=== PATIENT | male | born 1985 | race Caucasian/White ===

== ENCOUNTER 2016-07-28 22:45 | Emergency (ER) | payer OTHER ==
[~2016-07-28 22:45] MED LIST: ASPI81TA85 PO; DEPA1TAB3 PO; DEPA500T2 PO; FLUO20CA8 PO; IBUP600T26 PO; INSUH10VL SC; INSULADS SC; LANTINJ4 SC; LISI-538 PO; LISI-542 PO; METF500T PO; VIMP200T PO
[2016-07-28] MEDS ORDERED: METOCLOPRAMIDE INJ 10MG/2ML VIAL (J2765) As Ordered ONE (23:28)
[2016-07-28 23:34] LABS: BASO % 0.3 % (0.0-1.0); EOS # 0.1 K/mm3 (0.0-0.50); EOS % 1.2 % (0.0-3.0); LARGE UNSTAINED CELL # 0.1 K/mm3 (0.0-0.4); LARGE UNSTAINED CELL % 1.4 % (0.0-4.0); LYMPH # 1.8 K/mm3 (1.5-4.5); LYMPH % 23.1 % (24.0-44.0); MEAN CORPUSCULAR HEMOGLOBIN 28.8 pg (27.0-33.0); MEAN CORPUSCULAR HGB CONC 35.7 g/dl (32.0-36.5); MEAN CORPUSCULAR VOLUME 80.6 fl (80.0-96.0); MONO # 0.3 K/mm3 (0.0-0.8); MONO % 3.8 % (0.0-5.0); NEUTROPHILS # 5.2 K/mm3 (1.8-7.7); NEUTROPHILS % 70.2 % (36.0-66.0); PLATELET COUNT, AUTOMATED 215 k/mm3 (150-450); RED CELL DISTRIBUTION WIDTH 12.8 % (11.5-14.5); WHITE BLOOD COUNT 7.4 K/mm3 (4.0-10.0)
[2016-07-29 00:02] LABS: ALBUMIN 3.9 GM/DL (3.2-5.2); ALBUMIN/GLOBULIN RATIO 1.03 (1.00-1.93); ALKALINE PHOSPHATASE 64 U/L (45-117); ALT/SGPT 94 U/L (12-78); AMYLASE 55 U/L (25-115); ANION GAP 11 MEQ/L (8-16); AST/SGOT 44 U/L (15-37); BILIRUBIN,DIRECT 0.1 MG/DL (0.0-0.2); BILIRUBIN,TOTAL 0.6 MG/DL (0.2-1.0); BLOOD UREA NITROGEN 8 MG/DL (7-18); CARBON DIOXIDE LEVEL 26 MEQ/L (21-32); CHLORIDE LEVEL 103 MEQ/L (98-107); CREATININE FOR GFR 0.62 MG/DL (0.70-1.30); GLOMERULAR FILTRATION RATE > 60.0 (>60); GLUCOSE, FASTING 150 MG/DL (70-105); POTASSIUM SERUM 3.7 MEQ/L (3.5-5.1); SODIUM LEVEL 140 MEQ/L (136-145); TOTAL PROTEIN 7.7 GM/DL (6.4-8.2)
--- NOTE | 2016-07-29 00:40 | REPUSA ---
CLINICAL HISTORY: Syncope. TECHNIQUE: Multiple axial brain CT scan sections were obtained from base to vertex without contrast a dministration. COMMENTS: Comparison is made to prior exam performed on 01/23/2015. The study shows normal configuration of sella turcica. There are no intra or extra-axial collections. There is no mass effect or midline shift. There is no evidence of hematoma formation. No hydrocephal us is present. No abnormal calcifications are noted. No significant abnormalities are seen either in the posterior fossa or supratentorial compartment. Left maxillary chronic sinusitis. The remaining sinuses and mastoid air cells are patent. IMPRESSION: No evidence of acute intracranial pathology. Thank you for your kind referral of this patient.
--- NOTE | 2016-07-29 00:58 | EDDOCDS ---
Physician Documentation [facility] Name: Agus Hoyos Age: 31 yrs Sex: Male : 1985 Arrival Date: 07/28/2016 Time: 22:45 Bed 14 Private MD: Bhupinder Roca Disposition: 07/29/16 00:45 Discharged to Home/Self Care. Impression: Noninfective gastroenteritis and colitis, unspecified. - Condition is Stable. - Prescriptions for Reglan 10 mg Oral Tablet - take 1 tablet by ORAL route every 6 hours take 30 minutes before meals and at bedtime; 20 tablet. - Medication Reconciliation, Local Pharmacy Hours form. - Follow up: Bhupinder Roca; When: Call to arrange an appointment; Reason: Recheck today's complaints. - Problem is new. - Symptoms have improved. Historical: - Allergies: Bees (Hives); - Home Meds: 1. Depakote ER 500mg 1 in am AM and 2 tabs PM Oral Tb24 1 tab daily 2. Keppra 1,000 mg Oral tab 1 tab every 12 hours 3. Trileptal 300 mg oral tab 3 tabs 2 times per day - PMHx: Hypertension; Seizures; - PSHx: Tonsillectomy; - Social history: Smoking status: Patient uses tobacco products, heavy tobacco smoker. No barriers to communication noted, The patient speaks fluent Colombian, Speaks appropriately for age. - Family history: Not pertinent. - : The pt / caregiver states he / she is not on anticoagulants. Home medication list is obtained from the patient. - Exposure Risk Screening:: None identified. Vital Signs: 07/28 22:51 BP 146 / 92; Pulse 62; Resp 18; Temp 99.1(O); Pulse Ox 95% on R/A; Weight 113.4 kg / devon 250 lbs (R); Height 5 ft. 11 in. (180.34 cm) (R); Pain 8/10; 07/29 00:48 BP 145 / 69; Pulse 79; Resp 18; Temp 99.0(TE); Pulse Ox 99% on R/A; Pain 0/10; devon 07/28 22:51 Body Mass Index 34.87 (113.40 kg, 180.34 cm) devon MDM: 07/28 23:09 IV Saline Lock ordered. cs11 23:09 NS 0.9% 1000 ml IV at bolus once ordered. cs11 23:09 Metoclopramide 10 mg IV at 40 mg/hr once over 15 mins ordered. cs11 23:10 CBC with Diff Ordered. EDMS 23:10 MED Profile Ordered. EDMS 23:10 Liver Profile Ordered. EDMS 23:10 Lipase Ordered. EDMS 23:10 Amylase Ordered. EDMS 23:10 CT Head Without Contrast Ordered. EDMS 23:11 DEPAKOTE Ordered. EDMS 07/29 00:29 CBC with Diff Reviewed. cs11 00:29 MED Profile Reviewed. cs11 00:29 Liver Profile Reviewed. cs11 00:29 Lipase Reviewed. cs11 00:29 Amylase Reviewed. cs11 00:29 DEPAKOTE Reviewed. 11 00:56 Financial registration complete. hs2 Administered Medications: 07/28 23:36 Drug: NS 0.9% 1000 ml [sodium chloride 0.9 % intravenous solution] Route: IV; Rate: jmb bolus; Site: left antecubital; 23:36 Drug: Metoclopramide 10 mg [metoclopramide 5 mg/mL injection solution] Route: IV; Rate: jmb 40 mg/hr; Infused Over: 15 mins; Site: left antecubital; Signatures: Dispatcher [employer] Miguel Willard DO DO cs11 Sean Aragon RN RN jmb Stanton, Hillary, Reg Reg hs2 MTDD
--- NOTE | 2016-07-29 00:58 | EDDOCDS ---
Nurse's Notes [facility] Name: Agus Hoyos Age: 31 yrs Sex: Male : 1985 Arrival Date: 07/28/2016 Time: 22:45 Bed 14 Private MD: Bhupinder Roca Diagnosis: Noninfective gastroenteritis and colitis, unspecified Presentation: 07/28 22:47 Presenting complaint: EMS states: Patient has had headache and vomiting since 3 p.m. jmb Patient has done nothing to help alleviate. Vomited 4 times total. Adult Sepsis Screening: The patient does not have new or worsening altered mentation. Patient's respiratory rate is less than 22. Systolic blood pressure is greater than 100. Patient has a qSOFA score of 0- Negative Sepsis Screen. Suicide/Homicide risk assessment- the patient denies having any suicidal and/or homicidal ideations and does not present with any other emotional, behavioral or mental health complaints. Status: Patient is not a home service advisor or dependent. Transition of care: patient was not received from another setting of care. 22:47 Acuity: JERZY Level 4 [facility] 22:47 Method Of Arrival: Ambulance [facility] 22:53 Presenting complaint: Patient states: Patient reports headache, states that his jmb headache makes him feel sick and that he cannot vomit currently. Patient denies taking anything to alleviate headache. Triage Assessment: 22:49 General: Appears in no apparent distress, Behavior is appropriate for age, cooperative. b Pain: Location: head Pain currently is 8 out of 10 on a pain scale. HIV screening NA for this visit Offered previously. Neurological: Level of Consciousness is awake, alert, obeys commands, Oriented to person, place, time, Speech is normal, Facial symmetry appears normal, Facial symmetry: tongue is midline. Respiratory: Airway is patent Respiratory effort is even, unlabored, Respiratory pattern is regular, symmetrical. GI: Abdomen is non- distended. Derm: Skin is pink, warm & dry. Musculoskeletal: Range of motion intact in all extremities. Historical: - Allergies: Bees (Hives); - Home Meds: 1. Depakote ER 500mg 1 in am AM and 2 tabs PM Oral Tb24 1 tab daily 2. Keppra 1,000 mg Oral tab 1 tab every 12 hours 3. Trileptal 300 mg oral tab 3 tabs 2 times per day - PMHx: Hypertension; Seizures; - PSHx: Tonsillectomy; - Social history: Smoking status: Patient uses tobacco products, heavy tobacco smoker. No barriers to communication noted, The patient speaks fluent Bulgarian, Speaks appropriately for age. - Family history: Not pertinent. - : The pt / caregiver states he / she is not on anticoagulants. Home medication list is obtained from the patient. - Exposure Risk Screening:: None identified. Screenin:52 Screening information is obtained from the patient. Fall risk: No risks identified. jmb Assistance ADL's: requires no assistance with activities of daily living. Abuse/DV Screen: The patient / caregiver reports he/she is: not in a situation that causes fear, pain or injury. Nutritional screening: No deficits noted. home support is adequate. 07/29 00:51 Advance Directives: Currently, there is no health care proxy. There is no active DNR jmb order. There is no living will. There is no Power of Analytics Intern. Assessment: 07/28 22:52 General: Appears in no apparent distress, Behavior is appropriate for age, cooperative. jmb Pain: Location: head Pain currently is 8 out of 10 on a pain scale. Neurological: Level of Consciousness is awake, alert, obeys commands, Oriented to person, place, time, Shuttleless Loom Weaver are equal bilaterally Moves all extremities. Speech is normal, Facial symmetry appears normal, Facial symmetry: tongue is midline, Pupils are PERRLA. Cardiovascular: Capillary refill < 3 seconds Heart tones S1 S2 present Pulses are all present. Rhythm is regular. Respiratory: Airway is patent Respiratory effort is even, unlabored, Respiratory pattern is regular, symmetrical, Breath sounds are clear bilaterally. Respiratory: GI: Abdomen is non- distended Bowel sounds present X 4 quads. Abd is soft and non tender X 4 quads. Derm: Skin is pink, warm & dry. Musculoskeletal: Range of motion intact in all extremities. 23:35 General: Appears in no apparent distress, comfortable, Behavior is appropriate for age, jmb cooperative, Patient laying on stretcher, no voiced complaints at this time. . Neurological: Level of Consciousness is awake, alert, obeys commands, Oriented to person, place, time. Respiratory: Airway is patent Respiratory effort is even, unlabored, Respiratory pattern is regular, symmetrical. 07/29 00:27 General: Appears in no apparent distress, comfortable, Behavior is appropriate for age, jmb cooperative. Neurological: Level of Consciousness is awake, alert, obeys commands, Oriented to person, place, time. Respiratory: Airway is patent Respiratory effort is even, unlabored, Respiratory pattern is regular, symmetrical. 00:51 General: Patient instructed on discharge instructions. Patient asked if there were any b questions regarding discharge, patient stated no. IV discontinued per hospital policy. Patient signed discharge instructions. Patient discharged in stable condition. . Vital Signs: 07/28 22:51 BP 146 / 92; Pulse 62; Resp 18; Temp 99.1(O); Pulse Ox 95% on R/A; Weight 113.4 kg (R); devon Height 5 ft. 11 in. (180.34 cm) (R); Pain 8/10; 07/29 00:48 BP 145 / 69; Pulse 79; Resp 18; Temp 99.0(TE); Pulse Ox 99% on R/A; Pain 0/10; devon 07/28 22:51 Body Mass Index 34.87 (113.40 kg, 180.34 cm) devon Vitals: 07/28 22:49 Log In Time N/A - ambulance arrival. [facility] ED Course: 22:46 Patient visited by Jeana Mccall PCA. tmm1 22:46 Patient moved to Waiting tmm1 22:47 Bhupinder Roca is Private Physician. tmm1 22:47 Patient moved to 14 tmm1 22:48 Miguel Ocasio DO is Attending Physician. cs11 22:48 Patient visited by Miguel Ocasio DO. cs11 22:48 Triage Initiated [facility] 22:50 Patient visited by Sean Aragon RN. b 22:52 The patient / caregiver is instructed regarding the plan of care and ED course. jmb 22:54 Patient visited by Sean Aragon RN. samb 23:27 Amylase Sent. samb 23:27 Lipase Sent. jmb 23:27 Liver Profile Sent. jmb 23:27 MED Profile Sent. jmb 23:28 CBC with Diff Sent. samb 23:28 DEPAKOTE Sent. jmb 23:36 Patient visited by Sean Aragon,TERE. kvng 07/29 00:27 Patient visited by Sean Aragon RN. samb 00:45 Bhupinder Roca is Referral Physician. cs11 00:49 Patient visited by Sharon Sr PCA. devon 00:51 Discontinued lock intact, bleeding controlled, pressure dressing applied, No jmb redness/swelling at site. No procedures done that require assistance. Administered Medications: 07/28 23:36 Drug: NS 0.9% 1000 ml [sodium chloride 0.9 % intravenous solution] Route: IV; Rate: jmb bolus; Site: left antecubital; 23:36 Drug: Metoclopramide 10 mg [metoclopramide 5 mg/mL injection solution] Route: IV; Rate: jmb 40 mg/hr; Infused Over: 15 mins; Site: left antecubital; Order Results: Lab Order: CBC with Diff; SPEC'M 07/28/16 23:26 Test: WHITE BLOOD COUNT; Value: 7.4; Range: 4.0-10.0; Units: K/mm3; Status: F Test: RED BLOOD COUNT; Value: 5.39; Range: 4.30-6.10; Units: M/mm3; Status: F Test: HEMOGLOBIN; Value: 15.5; Range: 14.0-18.0; Units: g/dl; Status: F Test: HEMATOCRIT; Value: 43.4; Range: 42.0-52.0; Units: %; Status: F Test: MEAN CORPUSCULAR VOLUME; Value: 80.6; Range: 80.0-96.0; Units: fl; Status: F Test: MEAN CORPUSCULAR HEMOGLOBIN; Value: 28.8; Range: 27.0-33.0; Units: pg; Status: F Test: MEAN CORPUSCULAR HGB CONC; Value: 35.7; Range: 32.0-36.5; Units: g/dl; Status: F Test: RED CELL DISTRIBUTION WIDTH; Value: 12.8; Range: 11.5-14.5; Units: %; Status: F Test: PLATELET COUNT, AUTOMATED; Value: 215; Range: 150-450; Units: k/mm3; Status: F Test: NEUTROPHILS %; Value: 70.2; Range: 36.0-66.0; Abnormal: Above high normal; Units: %; Status: F Test: LYMPH %; Value: 23.1; Range: 24.0-44.0; Abnormal: Below low normal; Units: %; Status: F Test: MONO %; Value: 3.8; Range: 0.0-5.0; Units: %; Status: F Test: EOS %; Value: 1.2; Range: 0.0-3.0; Units: %; Status: F Test: BASO %; Value: 0.3; Range: 0.0-1.0; Units: %; Status: F Test: LARGE UNSTAINED CELL %; Value: 1.4; Range: 0.0-4.0; Units: %; Status: F Test: NEUTROPHILS #; Value: 5.2; Range: 1.8-7.7; Units: K/mm3; Status: F Test: LYMPH #; Value: 1.8; Range: 1.5-4.5; Units: K/mm3; Status: F Test: MONO #; Value: 0.3; Range: 0.0-0.8; Units: K/mm3; Status: F Test: EOS #; Value: 0.1; Range: 0.0-0.50; Units: K/mm3; Status: F Test: BASO #; Value: 0.0; Range: 0.0-0.2; Units: K/mm3; Status: F Test: LARGE UNSTAINED CELL #; Value: 0.1; Range: 0.0-0.4; Units: K/mm3; Status: F Lab Order: MED Profile; SPEC'M 07/28/16 23:26 Test: GLUCOSE, FASTING; Value: 150; Range: 70-105; Abnormal: Above high normal; Units: MG/DL; Status: F Test: BLOOD UREA NITROGEN; Value: 8; Range: 7-18; Units: MG/DL; Status: F Test: CREATININE FOR GFR; Value: 0.62; Range: 0.70-1.30; Abnormal: Below low normal; Units: MG/DL; Status: F Test: GLOMERULAR FILTRATION RATE; Value: > 60.0; Range: >60; Status: F Test: SODIUM LEVEL; Value: 140; Range: 136-145; Units: MEQ/L; Status: F Test: POTASSIUM SERUM; Value: 3.7; Range: 3.5-5.1; Units: MEQ/L; Status: F Test: CHLORIDE LEVEL; Value: 103; Range: 98-107; Units: MEQ/L; Status: F Test: CARBON DIOXIDE LEVEL; Value: 26; Range: 21-32; Units: MEQ/L; Status: F Test: ANION GAP; Value: 11; Range: 8-16; Units: MEQ/L; Status: F Test: CALCIUM LEVEL; Value: 9.0; Range: 8.5-10.1; Units: MG/DL; Status: F Test Note: ; Units are mL/min/1.73 m2 Chronic Kidney Disease Staging per NKF: Stage I & II GFR >=60 Normal to Mildly Decreased Stage III GFR 30-59 Moderately Decreased Stage IV GFR 15-29 Severely Decreased Stage V GFR <15 Very Little GFR Left ESRD GFR <15 on MEDICAL CLAIMS MANAGER Lab Order: Liver Profile; [facility] 07/28/16 23:26 Test: AST/SGOT; Value: 44; Range: 15-37; Abnormal: Above high normal; Units: U/L; Status: F Test: ALT/SGPT; Value: 94; Range: 12-78; Abnormal: Above high normal; Units: U/L; Status: F Test: ALKALINE PHOSPHATASE; Value: 64; Range: 45-117; Units: U/L; Status: F Test: BILIRUBIN,TOTAL; Value: 0.6; Range: 0.2-1.0; Units: MG/DL; Status: F Test: BILIRUBIN,DIRECT; Value: 0.1; Range: 0.0-0.2; Units: MG/DL; Status: F Test: TOTAL PROTEIN; Value: 7.7; Range: 6.4-8.2; Units: GM/DL; Status: F Test: ALBUMIN; Value: 3.9; Range: 3.2-5.2; Units: GM/DL; Status: F Test: ALBUMIN/GLOBULIN RATIO; Value: 1.03; Range: 1.00-1.93; Status: F Lab Order: Lipase; [facility] 07/28/16 23:26 Test: LIPASE; Value: 129; Range: 73-393; Units: U/L; Status: F Lab Order: Amylase; [facility] 07/28/16 23:26 Test: AMYLASE; Value: 55; Range: 25-115; Units: U/L; Status: F Lab Order: DEPAKOTE; SPEC'M 07/28/16 23:26 Test: VALPROIC ACID (DEPAKOTE); Value: 85.3; Range: 50.0-100.0; Units: UG/ML; Status: F Outcome: 07/29 00:45 Discharge ordered by Provider. cs11 00:57 Patient left the ED. kvng Signatures: Sharon Sr, DIVISION ROADMASTER DIVISION ROADMASTER devon Miguel Ocasio, DO cs11 Jeana Mccall, DIVISION ROADMASTER DIVISION ROADMASTER tmm1 Sean Aragon,RN RN kvng MTDD
--- NOTE | 2016-07-31 01:58 | EDDOCDS ---
Physician Documentation [facility] Name: Agus Hoyos Age: 31 yrs Sex: Male : 1985 Arrival Date: 07/28/2016 Time: 22:45 Bed 14 Private MD: Bhupinder Roca Disposition: 07/29/16 00:45 Discharged to Home/Self Care. Impression: Noninfective gastroenteritis and colitis, unspecified. - Condition is Stable. - Prescriptions for Reglan 10 mg Oral Tablet - take 1 tablet by ORAL route every 6 hours take 30 minutes before meals and at bedtime; 20 tablet. - Medication Reconciliation, Local Pharmacy Hours form. - Follow up: Bhupinder Roca; When: Call to arrange an appointment; Reason: Recheck today's complaints. - Problem is new. - Symptoms have improved. Historical: - Allergies: Bees (Hives); - Home Meds: 1. Depakote ER 500mg 1 in am AM and 2 tabs PM Oral Tb24 1 tab daily 2. Keppra 1,000 mg Oral tab 1 tab every 12 hours 3. Trileptal 300 mg oral tab 3 tabs 2 times per day - PMHx: Hypertension; Seizures; - PSHx: Tonsillectomy; - Social history: Smoking status: Patient uses tobacco products, heavy tobacco smoker. No barriers to communication noted, The patient speaks fluent Estonian, Speaks appropriately for age. - Family history: Not pertinent. - : The pt / caregiver states he / she is not on anticoagulants. Home medication list is obtained from the patient. - Exposure Risk Screening:: None identified. Vital Signs: 07/28 22:51 BP 146 / 92; Pulse 62; Resp 18; Temp 99.1(O); Pulse Ox 95% on R/A; Weight 113.4 kg / devon 250 lbs (R); Height 5 ft. 11 in. (180.34 cm) (R); Pain 8/10; 07/29 00:48 BP 145 / 69; Pulse 79; Resp 18; Temp 99.0(TE); Pulse Ox 99% on R/A; Pain 0/10; devon 07/28 22:51 Body Mass Index 34.87 (113.40 kg, 180.34 cm) devon MDM: 07/28 23:09 IV Saline Lock ordered. cs11 23:09 NS 0.9% 1000 ml IV at bolus once ordered. cs11 23:09 Metoclopramide 10 mg IV at 40 mg/hr once over 15 mins ordered. cs11 23:10 CBC with Diff Ordered. EDMS 23:10 MED Profile Ordered. EDMS 23:10 Liver Profile Ordered. EDMS 23:10 Lipase Ordered. EDMS 23:10 Amylase Ordered. EDMS 23:10 CT Head Without Contrast Ordered. EDMS 23:11 DEPAKOTE Ordered. EDMS 07/29 00:29 CBC with Diff Reviewed. cs11 00:29 MED Profile Reviewed. cs11 00:29 Liver Profile Reviewed. cs11 00:29 Lipase Reviewed. cs11 00:29 Amylase Reviewed. cs11 00:29 DEPAKOTE Reviewed. cs11 00:56 Financial registration complete. hs2 : [facility] Payment Agreement was scanned into [employer] and attached to record. hs2 : T-Sheet-- Draft Copy was scanned into [employer] and attached to record. gb Administered Medications: 07/28 23:36 Drug: NS 0.9% 1000 ml [sodium chloride 0.9 % intravenous solution] Route: IV; Rate: jmb bolus; Site: left antecubital; 23:36 Drug: Metoclopramide 10 mg [metoclopramide 5 mg/mL injection solution] Route: IV; Rate: jmb 40 mg/hr; Infused Over: 15 mins; Site: left antecubital; Signatures: Dispatcher [employer] EDMS Merary Diaz, Reg Reg gb Miguel Ocasio DO DO cs11 Sean Aragon RN RN Odette Little, Reg Reg hs2 The chart was reviewed and I authenticate all verbal orders and agree with the evaluation and treatment provided.Attachments: 07/29 01:09 [facility] [place] hs2 : T-Sheet-- Draft Copy gb Chart Complete MTDD
--- NOTE | 2016-07-31 01:58 | EDDOCDS ---
Physician Documentation [facility] Name: Agus Hoyos Age: 31 yrs Sex: Male : 1985 Arrival Date: 07/28/2016 Time: 22:45 Bed 14 Private MD: Bhupinder Roca Disposition: 07/29/16 00:45 Discharged to Home/Self Care. Impression: Noninfective gastroenteritis and colitis, unspecified. - Condition is Stable. - Prescriptions for Reglan 10 mg Oral Tablet - take 1 tablet by ORAL route every 6 hours take 30 minutes before meals and at bedtime; 20 tablet. - Medication Reconciliation, Local Pharmacy Hours form. - Follow up: Bhupinder Roca; When: Call to arrange an appointment; Reason: Recheck today's complaints. - Problem is new. - Symptoms have improved. Historical: - Allergies: Bees (Hives); - Home Meds: 1. Depakote ER 500mg 1 in am AM and 2 tabs PM Oral Tb24 1 tab daily 2. Keppra 1,000 mg Oral tab 1 tab every 12 hours 3. Trileptal 300 mg oral tab 3 tabs 2 times per day - PMHx: Hypertension; Seizures; - PSHx: Tonsillectomy; - Social history: Smoking status: Patient uses tobacco products, heavy tobacco smoker. No barriers to communication noted, The patient speaks fluent Luxembourger, Speaks appropriately for age. - Family history: Not pertinent. - : The pt / caregiver states he / she is not on anticoagulants. Home medication list is obtained from the patient. - Exposure Risk Screening:: None identified. Vital Signs: 07/28 22:51 BP 146 / 92; Pulse 62; Resp 18; Temp 99.1(O); Pulse Ox 95% on R/A; Weight 113.4 kg / devon 250 lbs (R); Height 5 ft. 11 in. (180.34 cm) (R); Pain 8/10; 07/29 00:48 BP 145 / 69; Pulse 79; Resp 18; Temp 99.0(TE); Pulse Ox 99% on R/A; Pain 0/10; devon 07/28 22:51 Body Mass Index 34.87 (113.40 kg, 180.34 cm) devon MDM: 07/28 23:09 IV Saline Lock ordered. cs11 23:09 NS 0.9% 1000 ml IV at bolus once ordered. cs11 23:09 Metoclopramide 10 mg IV at 40 mg/hr once over 15 mins ordered. cs11 23:10 CBC with Diff Ordered. EDMS 23:10 MED Profile Ordered. EDMS 23:10 Liver Profile Ordered. EDMS 23:10 Lipase Ordered. EDMS 23:10 Amylase Ordered. EDMS 23:10 CT Head Without Contrast Ordered. EDMS 23:11 DEPAKOTE Ordered. EDMS 07/29 00:29 CBC with Diff Reviewed. cs11 00:29 MED Profile Reviewed. cs11 00:29 Liver Profile Reviewed. cs11 00:29 Lipase Reviewed. cs11 00:29 Amylase Reviewed. cs11 00:29 DEPAKOTE Reviewed. cs11 00:56 Financial registration complete. hs2 : [facility] Payment Agreement was scanned into [employer] and attached to record. hs2 : T-Sheet-- Draft Copy was scanned into [employer] and attached to record. gb Administered Medications: 07/28 23:36 Drug: NS 0.9% 1000 ml [sodium chloride 0.9 % intravenous solution] Route: IV; Rate: jmb bolus; Site: left antecubital; 23:36 Drug: Metoclopramide 10 mg [metoclopramide 5 mg/mL injection solution] Route: IV; Rate: jmb 40 mg/hr; Infused Over: 15 mins; Site: left antecubital; Signatures: Dispatcher [employer] EDMS Merary Diaz, Reg Reg gb Miguel Ocasio DO DO cs11 Sean Aragon RN RN Odette Little, Reg Reg hs2 The chart was reviewed and I authenticate all verbal orders and agree with the evaluation and treatment provided.Attachments: 07/29 01:09 [facility] [place] Payment Agreement hs2 : T-Sheet-- Draft Copy gb Chart Complete MTDD
--- NOTE | 2016-07-31 01:58 | EDDOCDS ---
Nurse's Notes [facility] Name: Agus Hoyos Age: 31 yrs Sex: Male : 1985 Arrival Date: 07/28/2016 Time: 22:45 Bed 14 Private MD: Bhupinder Roca Diagnosis: Noninfective gastroenteritis and colitis, unspecified Presentation: 07/28 22:47 Presenting complaint: EMS states: Patient has had headache and vomiting since 3 p.m. jmb Patient has done nothing to help alleviate. Vomited 4 times total. Adult Sepsis Screening: The patient does not have new or worsening altered mentation. Patient's respiratory rate is less than 22. Systolic blood pressure is greater than 100. Patient has a qSOFA score of 0- Negative Sepsis Screen. Suicide/Homicide risk assessment- the patient denies having any suicidal and/or homicidal ideations and does not present with any other emotional, behavioral or mental health complaints. Status: Patient is not a legal service specialist or dependent. Transition of care: patient was not received from another setting of care. 22:47 Acuity: JERZY Level 4 [facility] 22:47 Method Of Arrival: Ambulance [facility] 22:53 Presenting complaint: Patient states: Patient reports headache, states that his jmb headache makes him feel sick and that he cannot vomit currently. Patient denies taking anything to alleviate headache. Triage Assessment: 22:49 General: Appears in no apparent distress, Behavior is appropriate for age, cooperative. b Pain: Location: head Pain currently is 8 out of 10 on a pain scale. HIV screening NA for this visit Offered previously. Neurological: Level of Consciousness is awake, alert, obeys commands, Oriented to person, place, time, Speech is normal, Facial symmetry appears normal, Facial symmetry: tongue is midline. Respiratory: Airway is patent Respiratory effort is even, unlabored, Respiratory pattern is regular, symmetrical. GI: Abdomen is non- distended. Derm: Skin is pink, warm & dry. Musculoskeletal: Range of motion intact in all extremities. Historical: - Allergies: Bees (Hives); - Home Meds: 1. Depakote ER 500mg 1 in am AM and 2 tabs PM Oral Tb24 1 tab daily 2. Keppra 1,000 mg Oral tab 1 tab every 12 hours 3. Trileptal 300 mg oral tab 3 tabs 2 times per day - PMHx: Hypertension; Seizures; - PSHx: Tonsillectomy; - Social history: Smoking status: Patient uses tobacco products, heavy tobacco smoker. No barriers to communication noted, The patient speaks fluent Latvian, Speaks appropriately for age. - Family history: Not pertinent. - : The pt / caregiver states he / she is not on anticoagulants. Home medication list is obtained from the patient. - Exposure Risk Screening:: None identified. Screenin:52 Screening information is obtained from the patient. Fall risk: No risks identified. jmb Assistance ADL's: requires no assistance with activities of daily living. Abuse/DV Screen: The patient / caregiver reports he/she is: not in a situation that causes fear, pain or injury. Nutritional screening: No deficits noted. home support is adequate. 07/29 00:51 Advance Directives: Currently, there is no health care proxy. There is no active DNR jmb order. There is no living will. There is no Power of Self Pay Representative. Assessment: 07/28 22:52 General: Appears in no apparent distress, Behavior is appropriate for age, cooperative. jmb Pain: Location: head Pain currently is 8 out of 10 on a pain scale. Neurological: Level of Consciousness is awake, alert, obeys commands, Oriented to person, place, time, Physical Therapy Director are equal bilaterally Moves all extremities. Speech is normal, Facial symmetry appears normal, Facial symmetry: tongue is midline, Pupils are PERRLA. Cardiovascular: Capillary refill < 3 seconds Heart tones S1 S2 present Pulses are all present. Rhythm is regular. Respiratory: Airway is patent Respiratory effort is even, unlabored, Respiratory pattern is regular, symmetrical, Breath sounds are clear bilaterally. Respiratory: GI: Abdomen is non- distended Bowel sounds present X 4 quads. Abd is soft and non tender X 4 quads. Derm: Skin is pink, warm & dry. Musculoskeletal: Range of motion intact in all extremities. 23:35 General: Appears in no apparent distress, comfortable, Behavior is appropriate for age, jmb cooperative, Patient laying on stretcher, no voiced complaints at this time. . Neurological: Level of Consciousness is awake, alert, obeys commands, Oriented to person, place, time. Respiratory: Airway is patent Respiratory effort is even, unlabored, Respiratory pattern is regular, symmetrical. 07/29 00:27 General: Appears in no apparent distress, comfortable, Behavior is appropriate for age, jmb cooperative. Neurological: Level of Consciousness is awake, alert, obeys commands, Oriented to person, place, time. Respiratory: Airway is patent Respiratory effort is even, unlabored, Respiratory pattern is regular, symmetrical. 00:51 General: Patient instructed on discharge instructions. Patient asked if there were any b questions regarding discharge, patient stated no. IV discontinued per hospital policy. Patient signed discharge instructions. Patient discharged in stable condition. . Vital Signs: 07/28 22:51 BP 146 / 92; Pulse 62; Resp 18; Temp 99.1(O); Pulse Ox 95% on R/A; Weight 113.4 kg (R); devon Height 5 ft. 11 in. (180.34 cm) (R); Pain 8/10; 07/29 00:48 BP 145 / 69; Pulse 79; Resp 18; Temp 99.0(TE); Pulse Ox 99% on R/A; Pain 0/10; devon 07/28 22:51 Body Mass Index 34.87 (113.40 kg, 180.34 cm) devon Vitals: 07/28 22:49 Log In Time N/A - ambulance arrival. [facility] ED Course: 22:46 Patient visited by Jeana Mccall PCA. tmm1 22:46 Patient moved to Waiting tmm1 22:47 Bhupinder Roca is Private Physician. tmm1 22:47 Patient moved to 14 tmm1 22:48 Miguel Ocasio DO is Attending Physician. cs11 22:48 Patient visited by Miguel Ocasio DO. cs11 22:48 Triage Initiated [facility] 22:50 Patient visited by Sean Aragon RN. b 22:52 The patient / caregiver is instructed regarding the plan of care and ED course. jmb 22:54 Patient visited by Sean Aragon RN. asmb 23:27 Amylase Sent. samb 23:27 Lipase Sent. jmb 23:27 Liver Profile Sent. jmb 23:27 MED Profile Sent. jmb 23:28 CBC with Diff Sent. samb 23:28 DEPAKOTE Sent. jmb 23:36 Patient visited by Sean Aragon,TERE. kvng 07/29 00:27 Patient visited by Sean Aragon RN. samb 00:45 Bhupinder Roca is Referral Physician. cs11 00:49 Patient visited by Sharon Sr PCA. devon 00:51 Discontinued lock intact, bleeding controlled, pressure dressing applied, No jmb redness/swelling at site. No procedures done that require assistance. 01:00 CT Head Without Contrast Returned. EDMS 01:09 [facility] Payment Agreement was scanned into [employer] and attached to record. hs2 09:28 T-Sheet-- Draft Copy was scanned into [employer] and attached to record. gb Administered Medications: 07/28 23:36 Drug: NS 0.9% 1000 ml [sodium chloride 0.9 % intravenous solution] Route: IV; Rate: jmb bolus; Site: left antecubital; 23:36 Drug: Metoclopramide 10 mg [metoclopramide 5 mg/mL injection solution] Route: IV; Rate: jmb 40 mg/hr; Infused Over: 15 mins; Site: left antecubital; Order Results: Lab Order: CBC with Diff; SPEC'M 07/28/16 23:26 Test: WHITE BLOOD COUNT; Value: 7.4; Range: 4.0-10.0; Units: K/mm3; Status: F Test: RED BLOOD COUNT; Value: 5.39; Range: 4.30-6.10; Units: M/mm3; Status: F Test: HEMOGLOBIN; Value: 15.5; Range: 14.0-18.0; Units: g/dl; Status: F Test: HEMATOCRIT; Value: 43.4; Range: 42.0-52.0; Units: %; Status: F Test: MEAN CORPUSCULAR VOLUME; Value: 80.6; Range: 80.0-96.0; Units: fl; Status: F Test: MEAN CORPUSCULAR HEMOGLOBIN; Value: 28.8; Range: 27.0-33.0; Units: pg; Status: F Test: MEAN CORPUSCULAR HGB CONC; Value: 35.7; Range: 32.0-36.5; Units: g/dl; Status: F Test: RED CELL DISTRIBUTION WIDTH; Value: 12.8; Range: 11.5-14.5; Units: %; Status: F Test: PLATELET COUNT, AUTOMATED; Value: 215; Range: 150-450; Units: k/mm3; Status: F Test: NEUTROPHILS %; Value: 70.2; Range: 36.0-66.0; Abnormal: Above high normal; Units: %; Status: F Test: LYMPH %; Value: 23.1; Range: 24.0-44.0; Abnormal: Below low normal; Units: %; Status: F Test: MONO %; Value: 3.8; Range: 0.0-5.0; Units: %; Status: F Test: EOS %; Value: 1.2; Range: 0.0-3.0; Units: %; Status: F Test: BASO %; Value: 0.3; Range: 0.0-1.0; Units: %; Status: F Test: LARGE UNSTAINED CELL %; Value: 1.4; Range: 0.0-4.0; Units: %; Status: F Test: NEUTROPHILS #; Value: 5.2; Range: 1.8-7.7; Units: K/mm3; Status: F Test: LYMPH #; Value: 1.8; Range: 1.5-4.5; Units: K/mm3; Status: F Test: MONO #; Value: 0.3; Range: 0.0-0.8; Units: K/mm3; Status: F Test: EOS #; Value: 0.1; Range: 0.0-0.50; Units: K/mm3; Status: F Test: BASO #; Value: 0.0; Range: 0.0-0.2; Units: K/mm3; Status: F Test: LARGE UNSTAINED CELL #; Value: 0.1; Range: 0.0-0.4; Units: K/mm3; Status: F Lab Order: MED Profile; SPEC'M 07/28/16 23:26 Test: GLUCOSE, FASTING; Value: 150; Range: 70-105; Abnormal: Above high normal; Units: MG/DL; Status: F Test: BLOOD UREA NITROGEN; Value: 8; Range: 7-18; Units: MG/DL; Status: F Test: CREATININE FOR GFR; Value: 0.62; Range: 0.70-1.30; Abnormal: Below low normal; Units: MG/DL; Status: F Test: GLOMERULAR FILTRATION RATE; Value: > 60.0; Range: >60; Status: F Test: SODIUM LEVEL; Value: 140; Range: 136-145; Units: MEQ/L; Status: F Test: POTASSIUM SERUM; Value: 3.7; Range: 3.5-5.1; Units: MEQ/L; Status: F Test: CHLORIDE LEVEL; Value: 103; Range: 98-107; Units: MEQ/L; Status: F Test: CARBON DIOXIDE LEVEL; Value: 26; Range: 21-32; Units: MEQ/L; Status: F Test: ANION GAP; Value: 11; Range: 8-16; Units: MEQ/L; Status: F Test: CALCIUM LEVEL; Value: 9.0; Range: 8.5-10.1; Units: MG/DL; Status: F Test Note: ; Units are mL/min/1.73 m2 Chronic Kidney Disease Staging per NKF: Stage I & II GFR >=60 Normal to Mildly Decreased Stage III GFR 30-59 Moderately Decreased Stage IV GFR 15-29 Severely Decreased Stage V GFR <15 Very Little GFR Left ESRD GFR <15 on SUPERVISOR STATEMENT CLERKS Lab Order: Liver Profile; SPEC'M 07/28/16 23:26 Test: AST/SGOT; Value: 44; Range: 15-37; Abnormal: Above high normal; Units: U/L; Status: F Test: ALT/SGPT; Value: 94; Range: 12-78; Abnormal: Above high normal; Units: U/L; Status: F Test: ALKALINE PHOSPHATASE; Value: 64; Range: 45-117; Units: U/L; Status: F Test: BILIRUBIN,TOTAL; Value: 0.6; Range: 0.2-1.0; Units: MG/DL; Status: F Test: BILIRUBIN,DIRECT; Value: 0.1; Range: 0.0-0.2; Units: MG/DL; Status: F Test: TOTAL PROTEIN; Value: 7.7; Range: 6.4-8.2; Units: GM/DL; Status: F Test: ALBUMIN; Value: 3.9; Range: 3.2-5.2; Units: GM/DL; Status: F Test: ALBUMIN/GLOBULIN RATIO; Value: 1.03; Range: 1.00-1.93; Status: F Lab Order: Lipase; SPEC'M 07/28/16 23:26 Test: LIPASE; Value: 129; Range: 73-393; Units: U/L; Status: F Lab Order: Amylase; SPEC'M 07/28/16 23:26 Test: AMYLASE; Value: 55; Range: 25-115; Units: U/L; Status: F Lab Order: DEPAKOTE; SPEC'M 07/28/16 23:26 Test: VALPROIC ACID (DEPAKOTE); Value: 85.3; Range: 50.0-100.0; Units: UG/ML; Status: F Radiology Order: CT Head Without Contrast Test: CT Head Without Contrast REASON FOR EXAMINATION: Syncope; ; CLINICAL HISTORY: Syncope.; TECHNIQUE: Multiple axial brain CT scan sections were obtained from base to vertex without contrast a; dministration.; COMMENTS:; Comparison is made to prior exam performed on 01/23/2015.; The study shows normal configuration of sella turcica. There are no intra or extra-axial collections.; There is no mass effect or midline shift. There is no evidence of hematoma formation. No hydrocephal; us is present. No abnormal calcifications are noted.; No significant abnormalities are seen either in the posterior fossa or supratentorial compartment.; Left maxillary chronic sinusitis.; The remaining sinuses and mastoid air cells are patent.; IMPRESSION:; No evidence of acute intracranial pathology.; Thank you for your kind referral of this patient.; ; Outcome: 07/29 00:45 Discharge ordered by Provider. cs11 00:57 Patient left the ED. kvng Signatures: Dispatcher [employer] EDMS Merary Diaz, Reg Reg gb Sharon Sr, STUNNER ANIMAL STUNNER ANIMAL Miguel Leonard, DO DO cs11 Jeana Mccall, STUNNER ANIMAL STUNNER ANIMAL tmm1 Sean Aragon,TERE RN samb Odette Mancera, Reg Reg hs2 Chart Complete MTDD
== END 2016-07-29 00:57 | disposition home or self-care (01) ==
LOC: M ED 22:45
DX: K52.9 Noninfective gastroenteritis and colitis, unspecified (principal); I10 Essential (primary) hypertension; G40.909 Epilepsy, unspecified, not intractable, without status epilepticus; Z79.899 Other long term (current) drug therapy; Z91.030 Bee allergy status; F17.210 Nicotine dependence, cigarettes, uncomplicated

== ENCOUNTER 2016-08-04 13:32 | Emergency (ER) | payer OTHER ==
[2016-08-04] MEDS ORDERED: DEPA1TAB3 PO (14:05)
[2016-08-04] MEDS ORDERED: KEPP1000 PO (14:05)
[2016-08-04] MEDS ORDERED: OXCA300T PO (14:05)
[2016-08-04] MEDS ORDERED: METO10TA2 PO (14:05)
[2016-08-04 15:34] VITALS: BP 140/83
== END 2016-08-04 15:51 | disposition home or self-care (01) ==
LOC: EDBD 13:32 → M ED 14:21
DX: G40.909 Epilepsy, unspecified, not intractable, without status epilepticus (principal); Z91.19 Patient's noncompliance with other medical treatment and regimen; Z79.899 Other long term (current) drug therapy; Z91.030 Bee allergy status; F17.210 Nicotine dependence, cigarettes, uncomplicated

== ENCOUNTER 2017-11-15 02:48 | Emergency (ER) | payer OTHER ==
[2017-11-15 03:30] LABS: BASO % 0.5 % (0.0-1.0); EOS # 0.1 10^3/uL (0.0-0.50); EOS % 1.4 % (0.0-3.0); HEMATOCRIT 42.9 % (42.0-52.0); HEMOGLOBIN 15.3 g/dl (13.5-17.5); IMMATURE GRANULOCYTE % 0.5 % (0-3.0); LYMPH # 2.4 10^3/uL (1.5-4.5); MEAN CORPUSCULAR HEMOGLOBIN 28.5 pg (27.0-33.0); MEAN CORPUSCULAR HGB CONC 35.7 g/dl (32.0-36.5); MONO # 0.4 10^3/uL (0.0-0.8); MONO % 7.1 % (0.0-5.0); NEUTROPHILS # 2.9 10^3/uL (1.8-7.7); NEUTROPHILS % 49.5 % (36.0-66.0); PLATELET COUNT, AUTOMATED 195 10^3/uL (150-450); RED BLOOD COUNT 5.36 10^6/uL (4.30-6.10); RED CELL DISTRIBUTION WIDTH 12.1 % (11.5-14.5); WHITE BLOOD COUNT 5.9 10^3/uL (4.0-10.0)
[2017-11-15 04:01] LABS: ANION GAP 10 MEQ/L (8-16); BLOOD UREA NITROGEN 7 MG/DL (7-18); CALCIUM LEVEL 8.7 MG/DL (8.5-10.1); CARBON DIOXIDE LEVEL 24 MEQ/L (21-32); CHLORIDE LEVEL 106 MEQ/L (98-107); CREATININE FOR GFR 0.74 MG/DL (0.70-1.30); GLOMERULAR FILTRATION RATE > 60.0 (>60); GLUCOSE, FASTING 212 MG/DL (70-100); POTASSIUM SERUM 3.6 MEQ/L (3.5-5.1); SODIUM LEVEL 140 MEQ/L (136-145); VALPROIC ACID (DEPAKOTE) 13.1 UG/ML (50.0-100.0)
[2017-11-15] MEDS: DIVALPROEX 500 MG TAB PO (04:35)
== END 2017-11-15 06:00 | disposition home or self-care (01) ==
LOC: M ED 02:48
DX: Z91.14 Patient's other noncompliance with medication regimen (principal); R56.9 Unspecified convulsions; E11.9 Type 2 diabetes mellitus without complications; Z72.0 Tobacco use; Z79.899 Other long term (current) drug therapy; Z91.030 Bee allergy status
CPT/HCPCS: 70450

== ENCOUNTER 2017-12-04 18:07 | Emergency (ER) | payer OTHER ==
[2017-12-04] MEDS: NS 1,000 ML IV (19:15)
[2017-12-04] MEDS: levETIRAcetam INJection 1,000 MG in D5W 100 ML IV (19:15)
[2017-12-04 19:24] LABS: BASO % 0.3 % (0.0-1.0); EOS # 0.1 10^3/uL (0.0-0.50); EOS % 1.1 % (0.0-3.0); HEMATOCRIT 47.6 % (42.0-52.0); HEMOGLOBIN 16.8 g/dl (13.5-17.5); IMMATURE GRANULOCYTE % 0.3 % (0-3.0); LYMPH # 2.3 10^3/uL (1.5-4.5); LYMPH % 37.2 % (24.0-44.0); MEAN CORPUSCULAR HEMOGLOBIN 28.5 pg (27.0-33.0); MEAN CORPUSCULAR HGB CONC 35.3 g/dl (32.0-36.5); MEAN CORPUSCULAR VOLUME 80.8 fl (80.0-96.0); MONO # 0.3 10^3/uL (0.0-0.8); MONO % 4.7 % (0.0-5.0); NEUTROPHILS # 3.5 10^3/uL (1.8-7.7); NEUTROPHILS % 56.4 % (36.0-66.0); PLATELET COUNT, AUTOMATED 202 10^3/uL (150-450); RED BLOOD COUNT 5.89 10^6/uL (4.30-6.10); RED CELL DISTRIBUTION WIDTH 12.5 % (11.5-14.5); WHITE BLOOD COUNT 6.2 10^3/uL (4.0-10.0)
[2017-12-04 19:33] LABS: ALBUMIN 3.9 GM/DL (3.2-5.2); ALBUMIN/GLOBULIN RATIO 1.05 (1.00-1.93); ALKALINE PHOSPHATASE 67 U/L (45-117); ALT/SGPT 81 U/L (12-78); ANION GAP 11 MEQ/L (8-16); AST/SGOT 46 U/L (7-37); BILIRUBIN,DIRECT 0.1 MG/DL (0.0-0.2); BILIRUBIN,TOTAL 0.6 MG/DL (0.2-1.0); BLOOD UREA NITROGEN 10 MG/DL (7-18); CARBON DIOXIDE LEVEL 24 MEQ/L (21-32); CHLORIDE LEVEL 106 MEQ/L (98-107); CPK CREATINE PHOSPHOKINASE 154 U/L (39-308); CREATININE FOR GFR 0.73 MG/DL (0.70-1.30); ETHYL ALCOHOL (ETHANOL) 0.005 % (0.000-0.010); GLOMERULAR FILTRATION RATE > 60.0 (>60); GLUCOSE, FASTING 162 MG/DL (70-100); POTASSIUM SERUM 3.9 MEQ/L (3.5-5.1); SALICYLATE LEVEL < 1.7 MG/DL (5.0-30.0); SODIUM LEVEL 141 MEQ/L (136-145); TOTAL PROTEIN 7.6 GM/DL (6.4-8.2); TROPONIN I < 0.02 NG/ML (< 0.10); VALPROIC ACID (DEPAKOTE) 12.9 UG/ML (50.0-100.0)
[2017-12-04 19:38] LABS: CK-MB VALUE MASS < 1.0 NG/ML (<3.6); MB/CK RELATIVE INDEX 0.64 (< OR =4)
[2017-12-04 19:45] LABS: ACETAMINOPHEN LEVEL < 2.0 UG/ML (10.0-30.0)
[2017-12-04 20:16] LABS: LACTIC ACID SEPSIS PROTOCOL 1.6 MMOL/L (0.4-2.0)
[2017-12-04 20:31] LABS: AMPHETAMINES LEVEL URINE NEGATIVE (NEGATIVE); BARBITURATES URINE NEGATIVE (NEGATIVE); BENZODIAZEPINES URINE NEGATIVE (NEGATIVE); CANNABINOIDS URINE NEGATIVE (NEGATIVE); COCAINE METABOLITE URINE NEGATIVE (NEGATIVE); METHADONE URINE NEGATIVE (NEGATIVE); OPIATES URINE NEGATIVE (NEGATIVE); PHENCYCLIDINE URINE NEGATIVE (NEGATIVE)
[2017-12-08 00:09] LABS: LEVETIRACETAM (KEPPRA) None Detected ug/mL (10.0-40.0)
== END 2017-12-04 20:39 | disposition home or self-care (01) ==
LOC: M ED 18:07
DX: G40.909 Epilepsy, unspecified, not intractable, without status epilepticus (principal); E11.9 Type 2 diabetes mellitus without complications; I10 Essential (primary) hypertension; Z79.899 Other long term (current) drug therapy; Z79.84 Long term (current) use of oral hypoglycemic drugs; Z91.030 Bee allergy status; Z87.891 Personal history of nicotine dependence
CPT/HCPCS: J1953

== ENCOUNTER 2018-02-18 10:09 | Emergency (ER) | payer OTHER ==
[2018-02-18 11:36] LABS: ANION GAP 7 MEQ/L (8-16); BLOOD UREA NITROGEN 8 MG/DL (7-18); CALCIUM LEVEL 8.4 MG/DL (8.5-10.1); CARBON DIOXIDE LEVEL 27 MEQ/L (21-32); CHLORIDE LEVEL 107 MEQ/L (98-107); CREATININE FOR GFR 0.85 MG/DL (0.70-1.30); GLOMERULAR FILTRATION RATE > 60.0 (>60); GLUCOSE, FASTING 166 MG/DL (70-100); POTASSIUM SERUM 4.1 MEQ/L (3.5-5.1); SODIUM LEVEL 141 MEQ/L (136-145); VALPROIC ACID (DEPAKOTE) 18.8 UG/ML (50.0-100.0)
[2018-02-18] MEDS: DIVALPROEX 250MG *ER* TAB PO (13:49)
== END 2018-02-18 13:52 | disposition home or self-care (01) ==
LOC: M ED 10:09
DX: G40.909 Epilepsy, unspecified, not intractable, without status epilepticus (principal); Z91.19 Patient's noncompliance with other medical treatment and regimen; R94.31 Abnormal electrocardiogram [ECG] [EKG]; E11.9 Type 2 diabetes mellitus without complications; I10 Essential (primary) hypertension; Z91.030 Bee allergy status
CPT/HCPCS: 93005

== ENCOUNTER 2018-04-07 10:40 | Emergency (ER) | payer OTHER ==
[2018-04-07 11:14] LABS: BASO # 0.1 10^3/uL (0.0-0.2); BASO % 0.8 % (0.0-1.0); EOS # 0.1 10^3/uL (0.0-0.50); EOS % 1.6 % (0.0-3.0); HEMATOCRIT 46.3 % (42.0-52.0); HEMOGLOBIN 16.4 g/dl (13.5-17.5); IMMATURE GRANULOCYTE % 0.7 % (0-3.0); LYMPH # 2.1 10^3/uL (1.5-4.5); LYMPH % 34.1 % (24.0-44.0); MEAN CORPUSCULAR HEMOGLOBIN 29.2 pg (27.0-33.0); MEAN CORPUSCULAR HGB CONC 35.4 g/dl (32.0-36.5); MEAN CORPUSCULAR VOLUME 82.5 fl (80.0-96.0); MONO # 0.5 10^3/uL (0.0-0.8); MONO % 8.1 % (0.0-5.0); NEUTROPHILS # 3.4 10^3/uL (1.8-7.7); NEUTROPHILS % 54.7 % (36.0-66.0); PLATELET COUNT, AUTOMATED 178 10^3/uL (150-450); RED BLOOD COUNT 5.61 10^6/uL (4.30-6.10); RED CELL DISTRIBUTION WIDTH 12.3 % (11.5-14.5); WHITE BLOOD COUNT 6.2 10^3/uL (4.0-10.0)
[2018-04-07 11:28] LABS: ALBUMIN 3.5 GM/DL (3.2-5.2); ALBUMIN/GLOBULIN RATIO 0.92 (1.00-1.93); ALKALINE PHOSPHATASE 64 U/L (45-117); ALT/SGPT 61 U/L (12-78); ANION GAP 17 MEQ/L (8-16); AST/SGOT 30 U/L (7-37); BILIRUBIN,DIRECT < 0.1 MG/DL (0.0-0.2); BILIRUBIN,TOTAL 0.2 MG/DL (0.2-1.0); BLOOD UREA NITROGEN 7 MG/DL (7-18); CALCIUM LEVEL 8.5 MG/DL (8.5-10.1); CARBON DIOXIDE LEVEL 19 MEQ/L (21-32); CHLORIDE LEVEL 102 MEQ/L (98-107); CREATININE FOR GFR 1.12 MG/DL (0.70-1.30); GLOMERULAR FILTRATION RATE > 60.0 (>60); GLUCOSE, FASTING 169 MG/DL (70-100); MAGNESIUM LEVEL 1.7 MG/DL (1.8-2.4); PHOSPHORUS LEVEL 2.7 MG/DL (2.5-4.9); POTASSIUM SERUM 3.7 MEQ/L (3.5-5.1); SODIUM LEVEL 138 MEQ/L (136-145); TOTAL PROTEIN 7.3 GM/DL (6.4-8.2)
[2018-04-07 12:02] LABS: VALPROIC ACID (DEPAKOTE) 39.3 UG/ML (50.0-100.0)
[2018-04-07] MEDS: NS 1,000 ML IV (13:04)
[2018-04-07] MEDS: VALPROATE SOD INJ 500 MG in D5W 50 ML IV (13:04)
[2018-04-07] MEDS: MAG SULF 1GM/100ML (MAG RUN) 1 GM in APPROPRIATE DILUENT 1 EA IV (14:26)
[2018-04-07 14:37] LABS: AMPHETAMINES LEVEL URINE NEGATIVE (NEGATIVE); BARBITURATES URINE NEGATIVE (NEGATIVE); BENZODIAZEPINES URINE POSITIVE (NEGATIVE); CANNABINOIDS URINE NEGATIVE (NEGATIVE); COCAINE METABOLITE URINE NEGATIVE (NEGATIVE); METHADONE URINE NEGATIVE (NEGATIVE); OPIATES URINE NEGATIVE (NEGATIVE); PHENCYCLIDINE URINE NEGATIVE (NEGATIVE)
== END 2018-04-07 16:21 | disposition home or self-care (01) ==
LOC: M ED 10:40
DX: G40.909 Epilepsy, unspecified, not intractable, without status epilepticus (principal); E11.9 Type 2 diabetes mellitus without complications; I10 Essential (primary) hypertension; Z87.891 Personal history of nicotine dependence; Z91.030 Bee allergy status; Z79.84 Long term (current) use of oral hypoglycemic drugs; Z79.899 Other long term (current) drug therapy
CPT/HCPCS: J3475

== ENCOUNTER 2023-07-09 17:44 | Inpatient (IN) | payer OTHER ==
[~2023-07-09] VITALS: Ht 180.3 cm; Wt 95.9 kg
[~2023-07-09 17:44] MED LIST changes: -ASPI81TA85 PO; +ASPI81TA86 PO; +DIVA500T9 PO; +FLUO-96 PO; -FLUO20CA8 PO; +IBUP-1022 PO; -IBUP600T26 PO; +KEPP10002 PO; -LISI-538 PO; -LISI-542 PO; +LISI20TA33 PO; +LISI5TAB11 PO; +MAGN400T35; +METF-838; -METF500T PO; +METF500T13 PO; +METO10TA2 PO; +OXCA300T14 PO
[2023-07-09 18:55] LABS: BASO % 0.2 % (0.0-1.0); EOS % 0.1 % (0.0-3.0); HEMATOCRIT 56.3 % (42.0-52.0); HEMOGLOBIN 19.2 g/dl (13.5-17.5); LYMPH # 1.3 10^3/uL (1.5-5.0); LYMPH % 10.6 % (24.0-44.0); MEAN CORPUSCULAR HEMOGLOBIN 29.2 pg (27.0-33.0); MEAN CORPUSCULAR HGB CONC 34.1 g/dl (32.0-36.5); MEAN CORPUSCULAR VOLUME 85.7 fl (80.0-96.0); MONO # 0.8 10^3/uL (0.0-0.8); MONO % 6.6 % (2.0-8.0); NEUTROPHILS # 10.3 10^3/uL (1.5-8.5); NEUTROPHILS % 82.1 % (36.0-66.0); PLATELET COUNT, AUTOMATED 221 10^3/uL (150-450); RED BLOOD COUNT 6.57 10^6/uL (4.30-6.10); WHITE BLOOD COUNT 12.6 10^3/uL (4.0-10.0)
[2023-07-09 19:20] LABS: LIPASE 47 U/L (12-53)
[2023-07-09 19:23] LABS: ALBUMIN 4.4 G/DL (3.2-5.2); ALKALINE PHOSPHATASE 81 U/L (46-116); ALT/SGPT 26 U/L (7.0-40); AST/SGOT < 8 U/L (<34); BILIRUBIN,DIRECT 0.2 MG/DL (<0.4); BILIRUBIN,TOTAL 0.9 MG/DL (0.3-1.2); BLOOD UREA NITROGEN 28 MG/DL (9-23); CALCIUM LEVEL 10.5 MG/DL (8.5-10.1); CARBON DIOXIDE LEVEL 22 MMOL/L (20-31); CHLORIDE LEVEL 97 MMOL/L (98-107); CREATININE FOR GFR 0.64 MG/DL (0.70-1.30); GLOMERULAR FILTRATION RATE > 60.0 (>60); GLUCOSE, FASTING 347 MG/DL (60-100); POTASSIUM SERUM 4.1 MMOL/L (3.5-5.1); SODIUM LEVEL 139 MMOL/L (136-145); TOTAL PROTEIN 8.5 G/DL (5.7-8.2)
[2023-07-09 19:30] LABS: RSV AMPLIFICATION NEGATIVE (NEGATIVE)
[2023-07-09 22:01] LABS: VENOUS BASE EXCESS -1.4 (-2.0-2.0); VENOUS HCO3 24.5 MMOL/L (23.0-27.0); VENOUS O2 SATURATION 61.8 % (60.0-80.0); VENOUS PH 7.354 UNITS (7.330-7.430); VENOUS STANDARD HCO3 22.1 MMOL/L; VENOUS TOTAL CO2 25.9 MMOL/L (24.0-28.0)
[2023-07-09 22:40] LABS: HEMOGLOBIN A1c 10.2 % (4.0-6.0)
[2023-07-09] MEDS: NS 3,000 ML in IV 1 EA IV ONE (23:07)
[2023-07-09] MEDS: ONDANSETRON 4MG 2ML VIAL IV ONE (23:07)
[2023-07-09] MEDS: HumuLIN R (REGULAR) INSULIN (NovoLIN R) **100U/ML** PER UNIT IV ONE (23:08)
[2023-07-09] MEDS ORDERED: ISOVUE-370 76% 100ML VIAL As Ordered ONE (23:28)
[2023-07-10] MEDS ORDERED: PIOG1TAB37 PO (00:07)
[2023-07-10] MEDS ORDERED: SEMA2PEN SC (00:07)
[2023-07-10] MEDS ORDERED: DIVA500T9 PO (00:07)
[2023-07-10] MEDS ORDERED: FLUTISP (00:07)
[2023-07-10] MEDS ORDERED: ATOR1TAB21 PO (00:07)
[2023-07-10] MEDS ORDERED: LEVE10003 PO (00:07)
[2023-07-10] MEDS ORDERED: FARX1TAB5 PO (00:07)
[2023-07-10] MEDS ORDERED: HOME MED LIST COMPLETE! XX SCH (00:10)
[2023-07-10] MEDS: METOCLOPRAMIDE INJ 10MG/2ML VIAL IV ONE (00:40)
[2023-07-10] MEDS: LEVEMIR (INSULIN DETEMIR) 1 UNITS/0.01ML SC ONE ×2 (02:17→10:04)
[2023-07-10] MEDS ORDERED: FLUTICASONE PROP 0.05% NASAL SPRAY 16 GM (FLONASE) PRN (02:50)
[2023-07-10 03:07] LABS: LIPASE 38 U/L (12-53)
[2023-07-10 03:41] LABS: ALBUMIN 3.6 G/DL (3.2-5.2); ALKALINE PHOSPHATASE 65 U/L (46-116); ALT/SGPT 21 U/L (7.0-40); AST/SGOT 11 U/L (<34); BILIRUBIN,DIRECT 0.2 MG/DL (<0.4); BILIRUBIN,TOTAL 0.5 MG/DL (0.3-1.2); BLOOD UREA NITROGEN 29 MG/DL (9-23); CALCIUM LEVEL 8.7 MG/DL (8.5-10.1); CARBON DIOXIDE LEVEL 24 MMOL/L (20-31); CHLORIDE LEVEL 101 MMOL/L (98-107); CREATININE FOR GFR 0.63 MG/DL (0.70-1.30); GLOMERULAR FILTRATION RATE > 60.0 (>60); GLUCOSE, FASTING 267 MG/DL (60-100); POTASSIUM SERUM 4.8 MMOL/L (3.5-5.1); SODIUM LEVEL 141 MMOL/L (136-145); TOTAL PROTEIN 6.9 G/DL (5.7-8.2)
[2023-07-10] MEDS ORDERED: NS 1,000 ML IV SCH (03:45)
[2023-07-10] MEDS ORDERED: INSULIN IV RATE CHANGE DOCUMENTATION ML/HR XX SCH (04:05)
[2023-07-10] MEDS: NS 1,000 ML IV ONE (04:52)
[2023-07-10] MEDS: INSULIN REGULAR IN 0.9 % NACL 100 UNIT in IV 1 EA IV SCH (05:00)
[2023-07-10 05:39] LABS: BLOOD UREA NITROGEN 23 MG/DL (9-23); CALCIUM LEVEL 8.1 MG/DL (8.5-10.1); CARBON DIOXIDE LEVEL 24 MMOL/L (20-31); CHLORIDE LEVEL 105 MMOL/L (98-107); CREATININE FOR GFR 0.48 MG/DL (0.70-1.30); GLOMERULAR FILTRATION RATE > 60.0 (>60); GLUCOSE, FASTING 217 MG/DL (60-100); POTASSIUM SERUM 4.2 MMOL/L (3.5-5.1); SODIUM LEVEL 140 MMOL/L (136-145)
[2023-07-10] MEDS: D5W/0.45% SODIUM CHLORIDE 1,000 ML IV SCH (06:04)
[2023-07-10] MEDS: PANTOPRAZOLE 40MG VIAL IV SCH (09:18)
[2023-07-10] MEDS: OXcarbazepine 300 MG TAB PO SCH (09:18)
[2023-07-10] MEDS: DIVALPROEX 500MG *ER* TAB PO SCH ×2 (09:19→21:26)
[2023-07-10] MEDS: levETIRAcetam INJection 1,000 MG in D5W 100 ML IV SCH (09:44)
[2023-07-10 10:08] LABS: BLOOD UREA NITROGEN 18 MG/DL (9-23); CALCIUM LEVEL 8.1 MG/DL (8.5-10.1); CARBON DIOXIDE LEVEL 27 MMOL/L (20-31); CHLORIDE LEVEL 106 MMOL/L (98-107); CREATININE FOR GFR 0.46 MG/DL (0.70-1.30); GLOMERULAR FILTRATION RATE > 60.0 (>60); GLUCOSE, FASTING 197 MG/DL (60-100); MAGNESIUM LEVEL 1.7 MG/DL (1.8-2.4); POTASSIUM SERUM 3.7 MMOL/L (3.5-5.1); SODIUM LEVEL 141 MMOL/L (136-145)
[2023-07-10] MEDS: MAG SULF 1GM/100ML (MAG RUN) 1 GM in IV 1 EA IV ONE (11:15)
[2023-07-10 11:39] LABS: BASO % 0.1 % (0.0-1.0); EOS % 0.2 % (0.0-3.0); HEMATOCRIT 41.7 % (42.0-52.0); LYMPH # 2.3 10^3/uL (1.5-5.0); LYMPH % 23.7 % (24.0-44.0); MEAN CORPUSCULAR HGB CONC 34.8 g/dl (32.0-36.5); MEAN CORPUSCULAR VOLUME 86.3 fl (80.0-96.0); MONO # 1.1 10^3/uL (0.0-0.8); MONO % 11.2 % (2.0-8.0); NEUTROPHILS # 6.3 10^3/uL (1.5-8.5); NEUTROPHILS % 64.4 % (36.0-66.0); PLATELET COUNT, AUTOMATED 132 10^3/uL (150-450); RED BLOOD COUNT 4.83 10^6/uL (4.30-6.10); WHITE BLOOD COUNT 9.7 10^3/uL (4.0-10.0)
[2023-07-10 11:41] LABS: HEMOGLOBIN 14.5 g/dl (13.5-17.5)
[2023-07-10] MEDS: INSULIN LISPRO (NovoLOG) PER UNIT SC SCH ×2 (12:00→20:43)
[2023-07-10] MEDS: NS 1,000 ML IV SCH ×2 (12:10→13:28)
[2023-07-10] MEDS ORDERED: GLUCAGON INJ 1MG VIAL SC PRN (13:05)
[2023-07-10] MEDS ORDERED: DEXTROSE 50% 50ML SYRINGE IV PRN (13:05)
[2023-07-10] MEDS ORDERED: GLUCOSE 4GM CHEW TABLET PO PRN (13:05)
[2023-07-10 13:15] VITALS: BP 120/70; TEMP 98.6; O2SAT 96
[2023-07-10] MEDS: POTASSIUM CHLORIDE 10MEQ SR TABLET PO ONE ×2 (13:27→23:41)
[2023-07-10] MEDS: HEPARIN SOD (PORCINE) 5000UNITS/ML 1ML VIAL/SYRINGE SC SCH (13:28)
[2023-07-10 14:16] VITALS: BP 170/98; TEMP 98.1; O2SAT 96
[2023-07-10 14:21] LABS: AMPHETAMINES LEVEL URINE NEGATIVE (NEGATIVE); BARBITURATES URINE NEGATIVE (NEGATIVE); BENZODIAZEPINES URINE NEGATIVE (NEGATIVE); CANNABINOIDS URINE NEGATIVE (NEGATIVE); COCAINE METABOLITE URINE NEGATIVE (NEGATIVE); METHADONE URINE NEGATIVE (NEGATIVE); OPIATES URINE NEGATIVE (NEGATIVE); PHENCYCLIDINE URINE NEGATIVE (NEGATIVE)
[2023-07-10] MEDS ORDERED: LEVEMIR (INSULIN DETEMIR) 1 UNITS/0.01ML SC SCH (21:00)
[2023-07-10] MEDS ORDERED: INSULIN LISPRO (NovoLOG) PER UNIT SC SCH (21:00)
[2023-07-10 21:20] VITALS: BP 126/67; TEMP 99; O2SAT 97
[2023-07-10] MEDS: ATORVASTATIN 20 MG TAB PO SCH (21:26)
[2023-07-10] MEDS: KETOROLAC 30 MG/ML 1ML VIAL IV ONE (22:35)
[2023-07-10 23:07] LABS: BLOOD UREA NITROGEN 11 MG/DL (9-23); CALCIUM LEVEL 7.9 MG/DL (8.5-10.1); CARBON DIOXIDE LEVEL 26 MMOL/L (20-31); CHLORIDE LEVEL 105 MMOL/L (98-107); CREATININE FOR GFR 0.43 MG/DL (0.70-1.30); GLOMERULAR FILTRATION RATE > 60.0 (>60); GLUCOSE, FASTING 150 MG/DL (60-100); MAGNESIUM LEVEL 1.5 MG/DL (1.8-2.4); POTASSIUM SERUM 3.4 MMOL/L (3.5-5.1); SODIUM LEVEL 140 MMOL/L (136-145)
[2023-07-10] MEDS: KCL 40MEQ in NS 1000ML 1,000 ML IV SCH (23:40)
[2023-07-10] MEDS: MAG SULF 1GM/100ML (MAG RUN) 1 GM in IV 1 EA IV SCH (23:42)
[2023-07-11 04:24] VITALS: BP 154/94; TEMP 98.5; O2SAT 96
[2023-07-11 06:48] LABS: ACETONE/KETONE > 4.50 MMOL/L (0.02-0.27)
[2023-07-11 07:41] LABS: BASO % 0.1 % (0.0-1.0); HEMATOCRIT 42.8 % (42.0-52.0); LYMPH # 1.8 10^3/uL (1.5-5.0); LYMPH % 23.1 % (24.0-44.0); MEAN CORPUSCULAR HEMOGLOBIN 29.8 pg (27.0-33.0); MEAN CORPUSCULAR VOLUME 85.1 fl (80.0-96.0); MONO # 0.6 10^3/uL (0.0-0.8); MONO % 7.3 % (2.0-8.0); NEUTROPHILS # 5.2 10^3/uL (1.5-8.5); NEUTROPHILS % 69.1 % (36.0-66.0); PLATELET COUNT, AUTOMATED 122 10^3/uL (150-450); RED BLOOD COUNT 5.03 10^6/uL (4.30-6.10); WHITE BLOOD COUNT 7.6 10^3/uL (4.0-10.0)
[2023-07-11] MEDS: LEVEMIR (INSULIN DETEMIR) 1 UNITS/0.01ML SC SCH (08:14)
[2023-07-11] MEDS: INSULIN LISPRO (NovoLOG) PER UNIT SC SCH (08:15)
[2023-07-11 09:44] LABS: BLOOD UREA NITROGEN 8 MG/DL (9-23); CALCIUM LEVEL 8.1 MG/DL (8.5-10.1); CARBON DIOXIDE LEVEL 26 MMOL/L (20-31); CHLORIDE LEVEL 102 MMOL/L (98-107); CREATININE FOR GFR 0.42 MG/DL (0.70-1.30); GLOMERULAR FILTRATION RATE > 60.0 (>60); GLUCOSE, FASTING 151 MG/DL (60-100); MAGNESIUM LEVEL 1.9 MG/DL (1.8-2.4); POTASSIUM SERUM 3.9 MMOL/L (3.5-5.1); SODIUM LEVEL 136 MMOL/L (136-145)
[2023-07-11] MEDS ORDERED: GLIP-162 PO (11:00)
[2023-07-11 14:00] VITALS: BP 134/89; TEMP 98.6; O2SAT 95
[2023-07-12] MEDS ORDERED: REGL10TA6 PO (13:09)
== END 2023-07-11 14:28 | disposition home or self-care (01) | DRG 639 ==
LOC: M ED 17:44 → EDBD 17:44 → M ED INP 07-10 04:04 → M MSPAV 07-10 13:08
PROVIDERS: ADMIT Internal Medicine; ATTEND Internal Medicine
DX: E11.10 Type 2 diabetes mellitus with ketoacidosis without coma (principal); E83.42 Hypomagnesemia; E11.65 Type 2 diabetes mellitus with hyperglycemia; D75.1 Secondary polycythemia; E87.6 Hypokalemia; R07.89 Other chest pain; G40.909 Epilepsy, unspecified, not intractable, without status epilepticus; E78.5 Hyperlipidemia, unspecified; Z79.899 Other long term (current) drug therapy; Z91.030 Bee allergy status

== ENCOUNTER 2023-07-12 09:03 | Emergency (ER) | payer OTHER ==
[~2023-07-12] VITALS: Ht 180.3 cm; Wt 100.0 kg
[~2023-07-12 09:03] MED LIST changes: +ATOR1TAB21 PO; +FARX1TAB5 PO; +FLUTISP; +GLIP-162 PO; +LEVE10003 PO; +PIOG1TAB37 PO; +SEMA2PEN SC
[2023-07-12 10:11] LABS: VENOUS BASE EXCESS -1.4 (-2.0-2.0); VENOUS HCO3 22.2 MMOL/L (23.0-27.0); VENOUS O2 SATURATION 87.1 % (60.0-80.0); VENOUS PARTIAL PRESSURE CO2 34.6 mmHg (38.0-50.0); VENOUS PARTIAL PRESSURE O2 49.9 mmHg (30.0-50.0); VENOUS PH 7.425 UNITS (7.330-7.430); VENOUS TOTAL CO2 23.3 MMOL/L (24.0-28.0)
[2023-07-12] MEDS: METOCLOPRAMIDE INJ 10MG/2ML VIAL IV ONE (10:11)
[2023-07-12] MEDS: NS 1,000 ML IV ONE ×2 (10:11→11:26)
[2023-07-12 10:20] LABS: BASO % 0.2 % (0.0-1.0); EOS % 0.2 % (0.0-3.0); HEMATOCRIT 45.1 % (42.0-52.0); LYMPH # 2.1 10^3/uL (1.5-5.0); LYMPH % 37.5 % (24.0-44.0); MEAN CORPUSCULAR HEMOGLOBIN 29.4 pg (27.0-33.0); MEAN CORPUSCULAR HGB CONC 35.5 g/dl (32.0-36.5); MEAN CORPUSCULAR VOLUME 82.8 fl (80.0-96.0); MONO # 0.5 10^3/uL (0.0-0.8); MONO % 9.3 % (2.0-8.0); NEUTROPHILS # 2.9 10^3/uL (1.5-8.5); NEUTROPHILS % 52.6 % (36.0-66.0); PLATELET COUNT, AUTOMATED 119 10^3/uL (150-450); RED BLOOD COUNT 5.45 10^6/uL (4.30-6.10); WHITE BLOOD COUNT 5.6 10^3/uL (4.0-10.0)
[2023-07-12 10:37] LABS: HEMOGLOBIN A1c 9.7 % (4.0-6.0)
[2023-07-12 10:42] LABS: ETHYL ALCOHOL (ETHANOL) < 0.003 % (0.000-0.010); LIPASE 45 U/L (12-53)
[2023-07-12 10:43] LABS: VALPROIC ACID (DEPAKOTE) 56.4 UG/ML (50.0-100.0)
[2023-07-12 10:45] LABS: ACETONE/KETONE 2.33 MMOL/L (0.02-0.27); ALBUMIN 3.5 G/DL (3.2-5.2); ALKALINE PHOSPHATASE 60 U/L (46-116); ALT/SGPT 14 U/L (7.0-40); AST/SGOT 22 U/L (<34); BILIRUBIN,DIRECT 0.2 MG/DL (<0.4); BILIRUBIN,TOTAL 0.7 MG/DL (0.3-1.2); BLOOD UREA NITROGEN 10 MG/DL (9-23); CARBON DIOXIDE LEVEL 23 MMOL/L (20-31); CHLORIDE LEVEL 102 MMOL/L (98-107); CREATININE FOR GFR 0.41 MG/DL (0.70-1.30); GLOMERULAR FILTRATION RATE > 60.0 (>60); GLUCOSE, FASTING 151 MG/DL (60-100); MAGNESIUM LEVEL 1.6 MG/DL (1.8-2.4); POTASSIUM SERUM 4.2 MMOL/L (3.5-5.1); SODIUM LEVEL 135 MMOL/L (136-145); TOTAL PROTEIN 6.8 G/DL (5.7-8.2)
[2023-07-12] MEDS ORDERED: ISOVUE-370 76% 100ML VIAL As Ordered ONE (11:05)
[2023-07-12] MEDS: levETIRAcetam INJection 1,000 MG in D5W 100 ML IV ONE (11:17)
[2023-07-12] MEDS: MAG SULF 1GM/100ML (MAG RUN) 1 GM in IV 1 EA IV ONE (11:22)
[2023-07-12 12:09] LABS: AMPHETAMINES LEVEL URINE NEGATIVE (NEGATIVE); BARBITURATES URINE NEGATIVE (NEGATIVE); CANNABINOIDS URINE NEGATIVE (NEGATIVE); COCAINE METABOLITE URINE NEGATIVE (NEGATIVE); METHADONE URINE NEGATIVE (NEGATIVE); OPIATES URINE NEGATIVE (NEGATIVE); PHENCYCLIDINE URINE NEGATIVE (NEGATIVE)
[2023-07-12 12:10] LABS: BENZODIAZEPINES URINE NEGATIVE (NEGATIVE)
[2023-07-12] MEDS ORDERED: REGL10TA6 PO (13:09)
[2023-07-12 14:18] VITALS: BP 158/86; TEMP 98.1; O2SAT 96
== END 2023-07-12 14:20 | disposition home or self-care (01) ==
LOC: M ED 09:03 → EDBD 09:03 → M ED 14:20
DX: R11.2 Nausea with vomiting, unspecified (principal); I44.4 Left anterior fascicular block; I25.2 Old myocardial infarction; E11.9 Type 2 diabetes mellitus without complications; F12.10 Cannabis abuse, uncomplicated; Z91.030 Bee allergy status; Z79.4 Long term (current) use of insulin; Z79.899 Other long term (current) drug therapy
CPT/HCPCS: 74177; 80048; 80076; 80164; 80180; 80307; 82010; 82077; 82803; 83036; 83690; 83735; 83930; 85025; 87040; 87486; 87581; 87633; 87798; 93005; 93041; 94760; 96361; 96374; 96375; 99285; J1953; J2765; J3475; Q9967

== ENCOUNTER 2024-05-29 16:47 | Emergency (ER) | payer OTHER ==
[~2024-05-29] VITALS: Ht 180.3 cm; Wt 107.3 kg
[~2024-05-29 16:47] MED LIST changes: +REGL10TA6 PO
[2024-05-29 18:14] LABS: BASO % 0.4 % (0.0-1.0); EOS % 0.7 % (0.0-3.0); HEMATOCRIT 53.8 % (42.0-52.0); HEMOGLOBIN 18.9 g/dl (13.5-17.5); LYMPH # 1.4 10^3/uL (1.5-5.0); LYMPH % 24.5 % (24.0-44.0); MEAN CORPUSCULAR HEMOGLOBIN 29.2 pg (27.0-33.0); MEAN CORPUSCULAR HGB CONC 35.1 g/dl (32.0-36.5); MEAN CORPUSCULAR VOLUME 83.2 fl (80.0-96.0); MONO # 0.5 10^3/uL (0.0-0.8); MONO % 8.5 % (2.0-8.0); NEUTROPHILS # 3.6 10^3/uL (1.5-8.5); NEUTROPHILS % 65.5 % (36.0-66.0); RED BLOOD COUNT 6.47 10^6/uL (4.30-6.10); WHITE BLOOD COUNT 5.5 10^3/uL (4.0-10.0)
[2024-05-29 18:31] LABS: INR 1.07; PROTHROMBIN TIME 14.2 SECONDS (12.5-14.5)
[2024-05-29 18:45] LABS: PARTIAL THROMBOPLASTIN TIME 20.4 SECONDS (24.8-34.2)
[2024-05-29 18:56] LABS: LIPASE 32 U/L (12-53)
[2024-05-29 18:58] LABS: ALKALINE PHOSPHATASE 84 U/L (40-129); ALT/SGPT 55 U/L (7.0-40); AST/SGOT 40 U/L (<34); BILIRUBIN,DIRECT 0.2 MG/DL (<0.4); BILIRUBIN,TOTAL 0.9 MG/DL (0.3-1.2); BLOOD UREA NITROGEN 17 MG/DL (9-23); CALCIUM LEVEL 9.5 MG/DL (8.5-10.1); CARBON DIOXIDE LEVEL 20 MMOL/L (20-31); CHLORIDE LEVEL 103 MMOL/L (98-107); CK-MB VALUE MASS < 1.0 NG/ML (<3.6); CREATININE FOR GFR 0.58 MG/DL (0.70-1.30); FREE T4 0.91 NG/DL (0.89-1.76); GLOMERULAR FILTRATION RATE > 60.0 (>60); GLUCOSE, FASTING 123 MG/DL (60-100); SODIUM LEVEL 137 MMOL/L (136-145); THYROID STIMULATING HORMONE 0.863 uIU/ML (0.55-4.78)
[2024-05-29 19:02] LABS: CPK CREATINE PHOSPHOKINASE 90 U/L (46-171); MB/CK RELATIVE INDEX 1.11 (< OR =4)
[2024-05-29 20:36] LABS: CK-MB VALUE MASS < 1.0 NG/ML (<3.6); CPK CREATINE PHOSPHOKINASE 118 U/L (46-171); MB/CK RELATIVE INDEX 0.84 (< OR =4)
[2024-05-30] MEDS ORDERED: ONDA-282 PO (01:01)
[2024-05-30 01:11] VITALS: BP 120/76; TEMP 98.8; O2SAT 98
== END 2024-05-30 01:12 | disposition home or self-care (01) ==
LOC: M ED 16:47
DX: A08.19 Acute gastroenteropathy due to other small round viruses (principal); R00.0 Tachycardia, unspecified; E11.9 Type 2 diabetes mellitus without complications; F17.290 Nicotine dependence, other tobacco product, uncomplicated; Z91.030 Bee allergy status; Z79.84 Long term (current) use of oral hypoglycemic drugs; Z79.4 Long term (current) use of insulin; Z79.899 Other long term (current) drug therapy

== ENCOUNTER 2025-04-14 12:24 | Emergency (ER) | payer MEDICARE, MEDICAID ==
[~2025-04-14] VITALS: Ht 180.3 cm; Wt 102.0 kg
[~2025-04-14 12:24] MED LIST changes: -IBUP-1022 PO; +IBUP600T42 PO; +ONDA-282 PO
[2025-04-14] MEDS: NS (Normal Saline) 0.9% 1,000 ML IV ONE (17:25)
[2025-04-14 17:30] LABS: VENOUS BASE EXCESS -0.4 (-2.0-2.0); VENOUS HCO3 25.5 MMOL/L (23.0-27.0); VENOUS O2 SATURATION 79.8 % (60.0-80.0); VENOUS PARTIAL PRESSURE CO2 45.8 mmHg (38.0-50.0); VENOUS PARTIAL PRESSURE O2 44.2 mmHg (30.0-50.0); VENOUS PH 7.363 UNITS (7.330-7.430); VENOUS STANDARD HCO3 23.6 MMOL/L; VENOUS TOTAL CO2 26.9 MMOL/L (24.0-28.0)
[2025-04-14 17:36] LABS: BASO # 0.0 10^3/uL (0.0-0.2); BASO % 0.4 % (0.0-1.0); EOS # 0.1 10^3/uL (0.0-0.5); EOS % 0.9 % (0.0-3.0); LYMPH # 2.9 10^3/uL (1.5-5.0); LYMPH % 50.9 % (24.0-44.0); MONO # 0.2 10^3/uL (0.0-0.8); MONO % 3.9 % (2.0-8.0); NEUTROPHILS # 2.5 10^3/uL (1.5-8.5); NEUTROPHILS % 43.7 % (36.0-66.0); PLATELET COUNT, AUTOMATED 193 10^3/uL (150-450)
[2025-04-14 17:40] LABS: APPEARANCE, URINE CLEAR (CLEAR); BACTERIA, URINE AUTO NEGATIVE (NEGATIVE); BILIRUBIN, URINE AUTO NEGATIVE (NEGATIVE); BLOOD, URINE BLOOD NEGATIVE (NEGATIVE); GLUCOSE, URINE (UA) AUTO 3+ mg/dL (NEGATIVE); KETONE, URINE AUTO TRACE mg/dL (NEGATIVE); LEUKOCYTE ESTERASE, URINE AUTO NEGATIVE (NEGATIVE); NITRITE, URINE AUTO NEGATIVE (NEGATIVE); PROTEIN, URINE AUTO NEGATIVE (NEGATIVE); RBC, URINE AUTO 0 /HPF (0-3); SPECIFIC GRAVITY URINE AUTO 1.033 (1.002-1.035); SQUAMOUS EPITHELIAL CELL UR AU 0 /HPF (0-6); UROBILINOGEN, URINE AUTO 0.2 mg/dL (0.0-2.0); WBC, URINE AUTO 0 /HPF (0-3)
[2025-04-14] MEDS: KETOROLAC 30 MG/ML 1 ML VIAL IV ONE (18:28)
[2025-04-14 18:30] VITALS: TEMP 97.3; O2SAT 98
[2025-04-14 18:31] VITALS: BP 155/97
== END 2025-04-14 18:36 | disposition home or self-care (01) ==
LOC: M ED 12:24
DX: E11.65 Type 2 diabetes mellitus with hyperglycemia (principal); E86.0 Dehydration; R51.9 Headache, unspecified; I10 Essential (primary) hypertension; Z91.030 Bee allergy status; Z79.84 Long term (current) use of oral hypoglycemic drugs; Z79.4 Long term (current) use of insulin; Z79.899 Other long term (current) drug therapy
CPT/HCPCS: 80047; 81001; 82803; 85025; 96361; 96374; 99284; J1885

== ENCOUNTER 2025-04-21 15:34 | Emergency (ER) | payer MEDICARE, MEDICAID ==
[~2025-04-21] VITALS: Ht 180.3 cm; Wt 95.5 kg
[2025-04-21] MEDS ORDERED: SILD50TA2 (15:43)
[2025-04-21] MEDS ORDERED: TIRZ2.5P (15:43)
[2025-04-21 18:01] LABS: BASO # 0.0 10^3/uL (0.0-0.2); BASO % 0.4 % (0.0-1.0); EOS # 0.0 10^3/uL (0.0-0.5); EOS % 0.4 % (0.0-3.0); LYMPH # 1.8 10^3/uL (1.5-5.0); LYMPH % 32.4 % (24.0-44.0); MONO # 0.2 10^3/uL (0.0-0.8); MONO % 4.4 % (2.0-8.0); NEUTROPHILS # 3.4 10^3/uL (1.5-8.5); NEUTROPHILS % 62.2 % (36.0-66.0); PLATELET COUNT, AUTOMATED 150 10^3/uL (150-450)
[2025-04-21 18:29] LABS: ALT/SGPT 47 U/L (7.0-40); AST/SGOT 29 U/L (<34); CALCIUM LEVEL 9.8 MG/DL (8.5-10.1); CARBON DIOXIDE LEVEL 25 MMOL/L (20-31); CHLORIDE LEVEL 99 MMOL/L (98-107); CREATININE FOR GFR 0.69 MG/DL (0.70-1.30); GLOMERULAR FILTRATION RATE > 90.0 (>60); POTASSIUM SERUM 3.9 MMOL/L (3.5-5.1); SODIUM LEVEL 136 MMOL/L (136-145)
[2025-04-21] MEDS: NS (Normal Saline) 0.9% 1,000 ML IV ONE (18:33)
[2025-04-21] MEDS: ONDANSETRON 4MG/2ML VIAL IV ONE ×2 (18:33→21:47)
[2025-04-21 18:36] VITALS: TEMP 96.7
[2025-04-21] MEDS ORDERED: ISOVUE-370 76% 100 ML VIAL As Ordered ONE (18:36)
[2025-04-21 19:21] LABS: KETONE, URINE AUTO RFX 1+ mg/dL (NEGATIVE); LEUKOCYTE ESTERASE UR AUTO RFX NEGATIVE (NEGATIVE); MUCUS, URINE RFX SMALL (NEGATIVE); NITRITE, URINE AUTO RFX NEGATIVE (NEGATIVE); RBC, URINE AUTO RFX 0 /HPF (0-3); SQUAM EPITHELIAL CELL UR AURFX 0 /HPF (0-6); WBC, URINE AUTO RFX 1 /HPF (0-3)
[2025-04-21] MEDS ORDERED: COLA100C5 PO (21:01)
[2025-04-21] MEDS ORDERED: ONDA-282 PO (21:01)
[2025-04-21] MEDS ORDERED: MIRA3350 PO (21:01)
[2025-04-21] MEDS ORDERED: AMOX875T2 PO (21:04)
[2025-04-21] MEDS: MAGNESIUM CITRATE 300 ML BTL PO ONE (21:16)
[2025-04-21] MEDS: cefTRIAXone SOD 1 GM in DEXTROSE 5% (D5W) ADV/MINI-BAG 50 ML IV ONE (21:16)
[2025-04-21 21:39] VITALS: BP 135/96; O2SAT 97
== END 2025-04-21 22:04 | disposition home or self-care (01) ==
LOC: EDBD 15:34 → M ED 19:01
DX: K59.00 Constipation, unspecified (principal); E11.9 Type 2 diabetes mellitus without complications; Z91.030 Bee allergy status; Z79.2 Long term (current) use of antibiotics; Z79.84 Long term (current) use of oral hypoglycemic drugs; Z79.899 Other long term (current) drug therapy
CPT/HCPCS: 74018; 74177; 80048; 80076; 81001; 83605; 83690; 85025; 96374; 96375; 96376; 99284; J0696; J2405; Q9967